=== PATIENT | female | born 2005 | race Two or more races ===

== ENCOUNTER 2024-10-26 13:30 | Emergency (ER) | payer OTHER ==
[~2024-10-26] VITALS: Ht 167.6 cm; Wt 68.5 kg
[2024-10-26 15:12] LABS: BASO % 1.4 % (0.1-1.2); EOS # 0.07 (0.04-0.54); EOS % 1.9 % (0.7-7.0); LYMPH # 1.59 (1.18-3.74); LYMPH % 43.0 % (19.3-53.1); MEAN PLATELET VOLUME 12.10 fl (9.4-12.4); MONO # 0.34 (0.24-0.82); MONO % 9.2 % (4.7-12.5); NEUT # 1.65 (1.56-6.13); NEUT % 44.5 % (34.0-71.1); RED CELL DISTRIBUTION WIDTH 13.6 % (11.6-14.4)
== END 2024-10-26 17:06 | disposition home or self-care (01) ==
LOC: ER 13:30
PROVIDERS: General Practice
DX: O20.8 Other hemorrhage in early pregnancy (principal); Z3A.01 Less than 8 weeks gestation of pregnancy